=== PATIENT | male | born 1955 | race Caucasian/White ===

== ENCOUNTER 2022-11-29 17:39 | Emergency (ER) | payer BC, MEDICARE ==
[2022-11-29] MEDS ORDERED: Lidocaine 1% 5 ML VIAL INJECT ONE (20:34)
[2022-11-29] MEDS ORDERED: Bacitracin Oint 1 GM U/D Packet TOP ONE (21:27)
[2022-11-29] MEDS ORDERED: Acetaminophen/HYDROcodone 325-5 MG Tab PO ONE (22:05)
[2022-11-29] MEDS ORDERED: Diphtheria,Pertussis(Acell),Tetanus Vaccine 0.5 ML Syringe IM ONE (22:23)
== END 2022-11-29 22:47 | disposition home or self-care (01) ==
LOC: MW.ED 17:39
DX: S62.616A Displaced fracture of proximal phalanx of right little finger, initial encounter for closed fracture (principal); S63.284A Dislocation of proximal interphalangeal joint of right ring finger, initial encounter; Z23 Encounter for immunization; Z79.899 Other long term (current) drug therapy; W01.0XXA Fall on same level from slipping, tripping and stumbling without subsequent striking against object, initial encounter
CPT/HCPCS: 12001; 26770; 73110; 73130; 90471; 90715; 99283; A9270; J3490

== ENCOUNTER 2023-05-07 06:46 | Day surgery (SDC) | payer MEDICARE, BC ==
[~2023-05-07 06:46] MED LIST: Lactated Ringers 1,000 ML IV SCH
[2023-05-07] MEDS ORDERED: propofoL 50 ML ONE (07:34)
== END 2023-05-07 09:00 | disposition home or self-care (01) ==
LOC: MW.SDS 06:46
PROVIDERS: ATTEND Surgery
DX: Z12.11 Encounter for screening for malignant neoplasm of colon (principal); E11.9 Type 2 diabetes mellitus without complications; K42.9 Umbilical hernia without obstruction or gangrene; E03.9 Hypothyroidism, unspecified; E78.00 Pure hypercholesterolemia, unspecified; Z79.84 Long term (current) use of oral hypoglycemic drugs; Z79.899 Other long term (current) drug therapy; Z87.891 Personal history of nicotine dependence; Z79.890 Hormone replacement therapy
CPT/HCPCS: G0121; J2704; J7120